=== PATIENT | male | born 2000 | race Caucasian/White ===

== ENCOUNTER 2021-01-17 09:39 | Emergency (ER) | payer BC, SELFPAY ==
[2021-01-17] MEDS ORDERED: Ondansetron PF 4 MG/2 ML Vial ONE ×2 (10:11→14:08)
[2021-01-17] MEDS ORDERED: Ketorolac Tromethamine 15 MG/ML VIAL ONE ×2 (10:11→14:08)
[2021-01-17 10:16] LABS: White Blood Cell (WBC) Count 7.1 10x3/uL (3.5-10.5)
[2021-01-17 10:17] LABS: %Basophils 0.4 % (0.0-2.0); %Eosinophils 0.3 % (0.0-6.0); %Lymphocytes 20.6 % (18.0-47.0); %Monocytes 11.3 % (0.0-10.0); Hemoglobin 15.2 g/dL (13.5-17.5); Mean Corpuscular HGB CONC 34.2 g/dL (32.0-36.0); Mean Corpuscular Hemoglobin 30.5 pg (27.0-33.0); Mean Corpuscular Volume 89.2 fl (81.2-95.1); Mean Platelet Volume 8.5 fl (7.4-10.4); Platelet Count 240 10x3/uL (150-450); RBC Distribution Width 11.5 % (11.5-14.5); Red Blood Cell (RBC) Count 4.99 10x6/uL (4.32-5.72)
[2021-01-17 10:18] LABS: #Monocytes 0.8 10x3/uL (0.0-1.1); #Neutrophils 4.8 10x3/uL (1.5-8.4)
[2021-01-17 10:39] LABS: ALT (SGPT) 18 U/L (8-55); AST (SGOT) 16 U/L (5-34); Albumin 4.5 g/dL (3.5-5.0); Alkaline Phosphatase 77 U/L (40-110); Anion Gap 14 mmol/L (10-20); BUN (Urea Nitrogen) 16 mg/dL (8.9-20.6); Bilirubin, Total 0.9 mg/dL (0.2-1.2); Calc. Creatinine Clearance 0 mL/min (70-130); Calcium 9.4 mg/dL (7.8-10.44); Carbon Dioxide 26 mmol/L (22-29); Chloride 103 mmol/L (98-107); Globulin 2.9 g/dL (2.4-3.5); Glucose 92 mg/dL (70-105); Lipase 9 U/L (8-78); Potassium 4.2 mmol/L (3.5-5.1); Protein, Total 7.4 g/dL (6.0-8.3); Sodium 139 mmol/L (136-145)
[2021-01-17] MEDS ORDERED: Piperacillin/Tazobactam 4.5 GM VIAL ONE (10:59)
[2021-01-17 12:45] LABS: SARS-CoV-2 NAA Rapid Test Not Detected (NotDetected)
[2021-01-17] MEDS ORDERED: Bupivacaine PF 0.5% 30 ML VIAL ONE (13:50)
[2021-01-17] MEDS ORDERED: EPINEPHrine 1 MG/ML AMP ONE (13:50)
[2021-01-17] MEDS ORDERED: Dexamethasone 20 MG/5 ML VIAL ONE (14:08)
[2021-01-17] MEDS ORDERED: Glycopyrrolate 0.2 MG/ML 5 ML SYRINGE ONE (14:08)
[2021-01-17] MEDS ORDERED: Meperidine HCl/PF 25 MG/ML VIAL ONE (14:35)
[2021-01-17] MEDS ORDERED: HYDROcodone/Acetaminophen 5/325 mg Tablet PO PRN (14:57)
== END 2021-01-17 12:43 | disposition admitted as inpatient to this hospital (09) ==
LOC: CSHERS 09:39
DX: K35.80 Unspecified acute appendicitis (principal); Z20.822 Contact with and (suspected) exposure to COVID-19
CPT/HCPCS: 74176; 80053; 83690; 85025; 88304; 96374; J0171; J1100; J1885; J2175; J2405; J2543; S0020; U0002